=== PATIENT | male | born 1970 | race Caucasian/White ===

== ENCOUNTER 2016-12-18 20:29 | Emergency (ER) | payer SELFPAY ==
[2016-12-18 21:01] LABS: BASOPHIL % 0.5 % (0-2); PLATELET COUNT 194 x10^3mcL (130-400); RED CELL DISTRIBUTION WIDTH 13.7 % (11.5-14.5)
[2016-12-18 21:22] LABS: CALCIUM 7.9 mg/dL (8.5-10.1); CARBON DIOXIDE 27.4 mmol/L (21-32); CHLORIDE SERUM 102 mmol/L (98-107); CREATININE SERUM 1.2 mg/dL (0.7-1.3); GFR1 > 60 mL/min; GLUCOSE SERUM 124 mg/dL (74-106); SODIUM SERUM 137 mmol/L (136-145)
[2016-12-18 21:27] LABS: ALBUMIN 3.8 g/dL (3.4-5.0); ALKALINE PHOSPHATASE 71 U/L (46-116); ALT/SGPT 34 U/L (16-63); AST/SGOT 30 U/L (15-37); BILIRUBIN TOTAL 0.6 mg/dL (0.20-1.00); LIPASE 143 IU/L (73-393); TOTAL PROTEIN, SERUM 7.9 g/dL (6.4-8.2)
[2016-12-18 22:05] LABS: microscopic required? NO
[2016-12-18 22:10] LABS: UA SPECIFIC GRAVITY <=1.005 (1.005-1.035); urine erythrocyte NEGATIVE (NEGATIVE)
[2016-12-18 22:26] LABS: AMPHETAMINE QUAL UR NONE DETECTED (NEG <=1000)
[2016-12-19 00:43] VITALS: BP 126/70
== END 2016-12-19 00:43 | disposition home or self-care (01) ==
LOC: ED 20:29
PROVIDERS: Emergency Medicine
DX: R10.9 Unspecified abdominal pain (principal); K56.7 Ileus, unspecified; F10.129 Alcohol abuse with intoxication, unspecified
CPT/HCPCS: G0480; J1885; J2270; J2765; J7030; Q9967

== ENCOUNTER 2016-12-21 18:50 | Emergency (ER) | payer SELFPAY ==
[2016-12-21 23:47] VITALS: BP 140/92
== END 2016-12-21 23:47 | disposition home or self-care (01) ==
LOC: ED 18:50
DX: K29.20 Alcoholic gastritis without bleeding (principal)